=== PATIENT | female | born 1965 | race Hispanic/Latino ===

== ENCOUNTER 2021-12-17 11:18 | Outpatient (CLI) | payer BC | END 2021-12-17 11:19 | disposition home or self-care (01) | LOC: CSHMAMMO 11:18 | PROVIDERS: ATTEND Student in an Organized Health Care Education/Training Program | DX: Z12.31 Encounter for screening mammogram for malignant neoplasm of breast (principal) | CPT/HCPCS: 77063; 77067 ==

== ENCOUNTER 2023-06-25 11:37 | Outpatient (CLI) | payer BC | END 2023-06-25 11:38 | disposition home or self-care (01) | LOC: CSHMAMMO 11:37 | PROVIDERS: ATTEND Student in an Organized Health Care Education/Training Program | DX: Z12.31 Encounter for screening mammogram for malignant neoplasm of breast (principal) | CPT/HCPCS: 77063; 77067 ==

== ENCOUNTER 2024-10-26 10:01 | Outpatient (CLI) | payer BC | END 2024-10-26 10:02 | disposition home or self-care (01) | LOC: CSHRAD 10:01 | PROVIDERS: ATTEND Student in an Organized Health Care Education/Training Program | DX: M25.521 Pain in right elbow (principal) ==

== ENCOUNTER 2025-06-07 12:30 | Outpatient (CLI) | payer BC | END 2025-06-07 12:31 | disposition home or self-care (01) | LOC: CSHRAD 12:30 | PROVIDERS: ATTEND Internal Medicine Rheumatology | DX: M06.09 Rheumatoid arthritis without rheumatoid factor, multiple sites (principal); Z51.81 Encounter for therapeutic drug level monitoring | CPT/HCPCS: 71046 ==